=== PATIENT | male | born 1975 | race African-American/Black ===

== ENCOUNTER 2016-12-13 20:56 | Emergency (ER) | payer OTHER ==
[~2016-12-13] VITALS: Ht 177.8 cm; Wt 96.0 kg
[2016-12-13 23:14] LABS: BASOPHILS % 0.7 % (0.0-2.0); HEMATOCRIT. 42.1 % (42.0-52.0); HEMOGLOBIN. 14.1 g/dL (14.0-18.0); LYMPHOCYTES % 40.7 % (20.0-50.0); MEAN CORPUSCULAR VOLUME 86.6 fL (80.0-94.0); MEAN PLATELET VOLUME 9.8 fl (7.4-10.4); MONOCYTES % 8.5 % (2.0-8.0); NEUTROPHILS % 46.1 % (40.0-76.0); PLATELET 193 x1000/uL (130-400); RED BLOOD CELL COUNT 4.86 mill/uL (4.7-6.1)
[2016-12-13 23:22] LABS: INR 1.1; PROTHROMBIN TIME 11.4 sec (9.4-11.6)
[2016-12-13 23:23] LABS: CARBON DIOXIDE 28 mEq/L (21-32); CHLORIDE 102 mEq/L (98-107)
[2016-12-13 23:29] LABS: TROPONIN I < 0.02 ng/mL (0.00-0.04)
[2016-12-14 02:37] VITALS: BP 155/88
== END 2016-12-14 02:38 | disposition home or self-care (01) ==
LOC: ER 20:56
DX: R07.89 Other chest pain (principal); R06.02 Shortness of breath
CPT/HCPCS: 36415; 71010; 80053; 83880; 84484; 85025; 85610; 93005; 99285; Z7610

== ENCOUNTER 2019-06-19 12:54 | Inpatient (IN) | payer OTHER ==
[~2019-06-19] VITALS: Ht 175.3 cm; Wt 103.9 kg
[2019-06-19] VITALS (7 sets, daily range): BP systolic 101–122; BP diastolic 49–65
[2019-06-19] MEDS ORDERED: MORPHINE SULFATE 4 MG/ML CPJ (NOT FOR IM USE) IV STA (13:06)
[2019-06-19] MEDS ORDERED: ONDANSETRON HCL 4MG/2ML INJ IV STA (13:06)
[2019-06-19] MEDS ORDERED: SODIUM CHLORIDE 0.9% 1,000 ML IV ONE (13:06)
[2019-06-19 13:28] LABS: BASOPHILS % 0.7 % (0.0-2.0); EOSINOPHILS % 2.8 % (0.0-5.0); LYMPHOCYTES % 15.7 % (20.0-50.0); MEAN CORPUSCULAR HEMOGLOBIN 27.8 pg (28.0-32.0); MEAN CORPUSCULAR VOLUME 83.4 fL (80.0-94.0); MEAN PLATELET VOLUME 8.3 fl (7.4-10.4); NEUTROPHILS % 73.8 % (40.0-76.0); PLATELET 336 x1000/uL (130-400); RED CELL DISTRIBUTION WIDTH 14.3 % (11.6-14.6)
[2019-06-19 13:30] LABS: HEMATOCRIT. 18.4 % (42.0-52.0); HEMOGLOBIN. 6.1 g/dL (14.0-18.0)
[2019-06-19] MEDS ORDERED: IOHEXOL-350 100 ML BOTTLE ONE (13:38)
[2019-06-19 13:39] LABS: CHLORIDE 98 mEq/L (98-107)
[2019-06-19 13:44] LABS: ETHANOL BLOOD < 10 mg/dL
[2019-06-19 13:47] LABS: D-DIMER 4.08 mg/L FEU (<0.50); PARTIAL THROMBOPLASTIN TIME 27.5 sec (23.4-31.0); PROTHROMBIN TIME 10.7 sec (9.6-11.0)
[2019-06-19 15:22] LABS: CLARITY URINE CLEAR (CLEAR); COLOR URINE ORANGE (YELLOW); KETONES URINE TRACE (NEGATIVE); LEUKOCYTE ESTERASE URINE NEGATIVE (NEGATIVE); NITRITE URINE NEGATIVE (NEGATIVE); OCCULT BLOOD URINE NEGATIVE (NEGATIVE); PROTEIN URINE NEGATIVE (NEGATIVE); SPECIFIC GRAVITY URINE 1.023 (1.005-1.030)
[2019-06-19 15:38] LABS: *AMPHETAMINES SCREEN URINE NEGATIVE (NEGATIVE); *BARBITURATES SCREEN URINE NEGATIVE (NEGATIVE); *BENZODIAZEPINES SCREEN URINE NEGATIVE (NEGATIVE); *COCAINE SCREEN URINE NEGATIVE (NEGATIVE)
[2019-06-19 15:39] LABS: CANNABINOID URINE SCREEN NEGATIVE (NEGATIVE); METHADONE URINE SCREEN NEGATIVE (NEGATIVE); OPIATES URINE SCREEN PRESUMTIVE POSITIVE (NEGATIVE); PHENCYCLIDINE URINE SCREEN NEGATIVE (NEGATIVE)
[2019-06-19] MEDS ORDERED: METOCLOPRAMIDE HCL 10MG/2ML VIAL IV NR (16:39)
[2019-06-19] MEDS ORDERED: ACETAMINOPHEN 650MG SUPP PR PRN ×2 (18:30)
[2019-06-19] MEDS ORDERED: IPRATROPIUM/ALBUTEROL 0.5-3(2.5)MG/3ML NEB HHN PRN (18:30)
[2019-06-19] MEDS ORDERED: ONDANSETRON HCL 4MG/2ML INJ IV PRN (18:30)
[2019-06-19] MEDS ORDERED: NA PHOS,M-B/NA PHOS,DI-BA ENEMA 118ML PR PRN (18:30)
[2019-06-19] MEDS ORDERED: MAGNESIUM/ALUMINUM HYDROXIDE/SIMETHICONE 30ML UDC PO PRN (18:30)
[2019-06-19] MEDS ORDERED: ACETAMINOPHEN 650MG/20.3ML UDC GT PRN ×2 (18:30)
[2019-06-19] MEDS ORDERED: CLONIDINE 0.1MG TABLET PO PRN (18:30)
[2019-06-19] MEDS ORDERED: GUAIFENESIN 200MG/10ML SUGAR FREE UDC PO PRN (18:30)
[2019-06-19] MEDS ORDERED: DOCUSATE SODIUM 100MG CAPSULE PO PRN (18:30)
[2019-06-19] MEDS ORDERED: ACETAMINOPHEN 325MG TABLET PO PRN (18:30)
[2019-06-19] MEDS ORDERED: MORPHINE SULFATE 2 MG/ML CPJ (NOT FOR IM USE) IV NR (18:35)
[2019-06-19] MEDS: SODIUM CHLORIDE 0.45% 1,000 ML IV SCH (18:48)
[2019-06-19] MEDS ORDERED: POTASSIUM CHLORIDE 20MEQ TABLET SR PO NR (20:15)
[2019-06-19 20:27] LABS: CLARITY URINE CLEAR (CLEAR); COLOR URINE YELLOW (YELLOW); KETONES URINE NEGATIVE (NEGATIVE); LEUKOCYTE ESTERASE URINE NEGATIVE (NEGATIVE); NITRITE URINE NEGATIVE (NEGATIVE); OCCULT BLOOD URINE NEGATIVE (NEGATIVE); PROTEIN URINE NEGATIVE (NEGATIVE); SPECIFIC GRAVITY URINE 1.025 (1.005-1.030)
[2019-06-19 20:39] LABS: *AMPHETAMINES SCREEN URINE NEGATIVE (NEGATIVE); *BARBITURATES SCREEN URINE NEGATIVE (NEGATIVE); *BENZODIAZEPINES SCREEN URINE NEGATIVE (NEGATIVE); *COCAINE SCREEN URINE NEGATIVE (NEGATIVE); METHADONE URINE SCREEN NEGATIVE (NEGATIVE); OPIATES URINE SCREEN PRESUMTIVE POSITIVE (NEGATIVE)
[2019-06-19 20:40] LABS: CANNABINOID URINE SCREEN NEGATIVE (NEGATIVE); PHENCYCLIDINE URINE SCREEN NEGATIVE (NEGATIVE)
[2019-06-19] MEDS: TAMSULOSIN HCL 0.4MG SR CAPSULE PO SCH (20:40)
[2019-06-19] MEDS: LIDOCAINE 5% PATCH TOP SCH (20:41)
[2019-06-19] MEDS: SODIUM CHLORIDE 0.9% INJ 3ML FLUSH IVF SCH (20:42)
[2019-06-19] MEDS: HYDROCODONE/ACETAMINOPHEN 10/325MG TABLET PO PRN (20:45)
[2019-06-20] VITALS (8 sets, daily range): BP systolic 95–120; BP diastolic 48–78
[2019-06-20] MEDS: HYDROCODONE/ACETAMINOPHEN 10/325MG TABLET PO PRN ×3 (00:56→12:30)
[2019-06-20] MEDS: SODIUM CHLORIDE 0.9% INJ 3ML FLUSH IVF SCH ×2 (06:13→12:36)
[2019-06-20 06:46] LABS: HEMATOCRIT. 23.5 % (42.0-52.0); HEMOGLOBIN. 8.2 g/dL (14.0-18.0); MEAN CORPUSCULAR HEMOGLOBIN 29.5 pg (28.0-32.0); MEAN CORPUSCULAR VOLUME 85.2 fL (80.0-94.0); MEAN PLATELET VOLUME 8.4 fl (7.4-10.4); PLATELET 258 x1000/uL (130-400); RED BLOOD CELL COUNT 2.76 mill/uL (4.7-6.1); RED CELL DISTRIBUTION WIDTH 14.4 % (11.6-14.6)
[2019-06-20 06:47] LABS: CHLORIDE 104 mEq/L (98-107)
[2019-06-20 06:54] LABS: LDL CHOLESTEROL 62 mg/dL (5-100)
[2019-06-20 06:55] LABS: CREATINE KINASE 281 IU/L (39-308); HDL CHOLESTEROL 24 mg/dL (40-59)
[2019-06-20 06:58] LABS: CREATINE KINASE MB FRACTION < 1.0 ng/mL (0.5-3.6)
[2019-06-20] MEDS: TAMSULOSIN HCL 0.4MG SR CAPSULE PO SCH (09:00)
[2019-06-20] MEDS: LIDOCAINE 5% PATCH TOP SCH (09:16)
[2019-06-20 10:23] LABS: PLATELET ESTIMATE NORMAL
[2019-06-20] MEDS: SODIUM CHLORIDE 0.45% 1,000 ML IV SCH (12:31)
[2019-06-20] MEDS ORDERED: CHLORPROMAZINE HCL 25 MG TABLET PO PRN (13:45)
[2019-06-20 16:17] LABS: CREATINE KINASE 262 IU/L (39-308)
[2019-06-20 16:18] LABS: CREATINE KINASE MB FRACTION 1.3 ng/mL (0.5-3.6)
== END 2019-06-20 17:35 | disposition short-term general hospital (02) | DRG 811 ==
LOC: ER 12:54 → CANRESERV 15:00 → ENRESERV 15:00 → 3WST 16:02 → EDBEDREQSVC 16:04 → ENRESERV 16:39
PROVIDERS: ADMIT Family Medicine; ATTEND Family Medicine
PROC: 30233N1 Transfusion of Nonautologous Red Blood Cells into Peripheral Vein, Percutaneous Approach (ICD-10-PCS; principal; 2019-06-19)
DX: D64.9 Anemia, unspecified (principal); E43 Unspecified severe protein-calorie malnutrition; N17.9 Acute kidney failure, unspecified; R07.89 Other chest pain; E87.6 Hypokalemia; M72.8 Other fibroblastic disorders; R73.9 Hyperglycemia, unspecified; I12.9 Hypertensive chronic kidney disease with stage 1 through stage 4 chronic kidney disease, or unspecified chronic kidney disease; N18.9 Chronic kidney disease, unspecified; Z68.33 Body mass index [BMI] 33.0-33.9, adult
CPT/HCPCS: 36415; 71045; 71275; 76770; 80053; 80061; 80305; 80320; 81003; 82550; 82553; 83880; 84484; 85025; 85379; 86850; 86900; 86920; 93005; 93970; J2270; J2405; J2765; J7030; P9016; Q0161; Q9967; G0480